=== PATIENT | male | born 1950 | race Caucasian/White ===

== ENCOUNTER 2016-08-29 17:02 | Inpatient (IN) | payer OTHER ==
--- NOTE | ~2016-08-29 | DS ---
Discharge Summary [facility] [address] [place]. [address] NAME: DEON MYERS III : 54 STATUS : DIS IN PAT#: [id number] AGE: 66 ADM/REG DATE : 08/29/16 MR#: [id number] REPORT SERV DATE: 09/09/16 DICTATED BY: CYRUS BETTS JR. DATE: 09/09/16 REPORT STATUS : Draft TRANSCRIBED BY: CAMERON DATE: 09/09/16 Data Collection from hospitalization DISCHARGE DIAGNOSES: 1. Inferior myocardial infarction-acute. 2. Hypertension. 3. Hypercholesterolemia. 4. Coronary artery disease. 5. Grade 1 carotid stenosis. 6. History of renal artery stenosis. CONSULTATIONS: None. PROCEDURES: Cardiac catheterization and percutaneous coronary intervention, 08/29/2016. DISCHARGE MEDICATIONS: Aspirin 81 mg daily, Lipitor 40 mg at bedtime, Lunesta 3 mg at bedtime as needed, Cozaar 25 mg daily, Lopressor 50 mg twice a day, Protonix 40 mg twice a day, Effient 10 mg daily, Zoloft 50 mg daily, Viagra 100 mg as needed, Cialis 10 mg daily as needed, magnesium tablet one tablet twice a day, Metamucil capsule five capsules twice a day as instructed. CONDITION ON DISCHARGE: Stable. DISPOSITION: The patient was discharged home on a low-sodium, low-cholesterol, cardiac diet with activities as instructed. He would follow up with Dr. Master Sinha, 09/23/2016. HOSPITAL COURSE: This is a 66-year-old man, who has known ischemic heart disease and is status post coronary artery bypass grafting in 2011. He developed the new onset of chest pain two hours prior to arrival. It was retrosternal burning with shortness of breath similar to his prior presentation. EKG revealed inferior ST elevation consistent with STEMI. STEMI protocol was activated. He was admitted to the hospital for further evaluation and treatment. Upon admission, the patient was felt to have had an acute inferior ST-elevation myocardial infarction. He was going to be taken emergently to the [facility] to undergo coronary angiography and possibly percutaneous intervention. Statin therapy would be continued throughout his hospital stay. Blood pressure medication would be adjusted as needed. He was taken to the [facility], where he underwent the above-mentioned procedure. He tolerated this well and there were no complications. The following day, he said he was feeling great. He had no edema. He had no nausea or vomiting. Over the next couple of days, he continued to progress. Discharge planning was performed. On 09/01/2016, he was in a normal sinus rhythm. Discharge instructions were given. Due to his improved and stable condition, he was discharged home with the above-stated instructions. Information collected by: Bekah Hobbs I submit the above information as my discharge summary. Discharge Summary [address] [address] NAME: DEON MYERS III : 54 STATUS : DIS IN PAT#: [id number] AGE: 66 ADM/REG DATE : 08/29/16 MR#: [id number] REPORT SERV DATE: 09/09/16 DICTATED BY: CYRUS BETTS JR. DATE: 09/09/16 REPORT STATUS : Draft TRANSCRIBED BY: CAMERON DATE: 09/09/16 TG/CAMERON Cyrus Betts Jr., M.D. / [id number] CC: Efrain Martinez Jr., M.D.
--- NOTE | ~2016-08-29 | HP ---
History And Physical [facility] [id number] [place]. [address] NAME: DEON DAVIDSON III : 54 STATUS : ADM IN [facility]#: [id number] AGE: 66 ADM/REG DATE : 08/29/16 MR#: [id number] REPORT SERV DATE: 08/29/16 DICTATED BY: CYRUS BETTS JR. DATE: 08/29/16 REPORT STATUS : Draft TRANSCRIBED BY: CAMERON DATE: 08/29/16 DATE OF ADMISSION: 08/29/2016 CHIEF COMPLAINT: Chest pain. HISTORY OF PRESENT ILLNESS: Deon Davidson is a 66-year-old male with known ischemic heart disease, status post CABG in 2011. He developed new onset chest pain two hours prior to arrival, it is the retrosternal burning with shortness of breath similar to his prior presentation. EKG revealed inferior ST elevation consistent with STEMI, and a STEMI protocol was activated. PAST MEDICAL HISTORY: Includes coronary artery disease, status post CABG in 11/2011 with a SB to OM, a WALTON to diagonal, and SVG to the LAD. The RCA was un-bypassed. He had a left subclavian stent prior to CABG. The patient has grade 1 carotid stenosis. He has renal artery stenosis. He has history of hypertension and mixed hyperlipidemia. He had a prior ejection fraction of 62%.. ALLERGIES: DENIED. CURRENT MEDICATIONS: Please see the home medication sheet. SOCIAL HISTORY: He does not smoke, drink, or use recreational drugs. FAMILY HISTORY: Significant for midlife vascular disease. REVIEW OF SYSTEMS: He denies recent fever or chills, sudden weight gain or weight loss, or bleeding diathesis. Remainder as HPI or negative. PHYSICAL EXAMINATION: VITAL SIGNS: Blood pressure 122/68, heart rate was 80, respirations 16. GENERAL: Well developed, well nourished, in no acute distress. HEENT: Anicteric, no scleral injection, no oral lesions. NECK: No JVD, supple, no bruits. LUNGS: Clear to auscultation. No hyperexpansion. CARDIOVASCULAR: Regular rate and rhythm with no murmur, rub or gallop. ABDOMEN: Soft, nontender. Normoactive bowel sounds, no hepatosplenomegaly. EXTREMITIES: No clubbing, cyanosis or edema. SKIN: No visible rashes. NEURO/PSY: Normal affect, alert and oriented x 3. EKG: EKG reveals inferior ST-elevation consistent with STEMI. MEDICAL DECISION MAKIN. Acute inferior ST-elevation myocardial infarction. The patient will be taken emergently to cardiac catheterization laboratory for coronary angiography and possible History And Physical [address] [address] NAME: DEON DAVIDSON III : 54 STATUS : ADM IN PAT#: [id number] AGE: 66 ADM/REG DATE : 08/29/16 MR#: [id number] REPORT SERV DATE: 08/29/16 DICTATED BY: CYRUS BETTS JR. DATE: 08/29/16 REPORT STATUS : Draft TRANSCRIBED BY: CAMERON DATE: 08/29/16 percutaneous intervention. The risks were verbally explained and verbally accepted. 2. Mixed hyperlipidemia. We will continue intensive statin therapy throughout this hospital stay. 3. Hypertension. We will adjust medicines as needed. VSM/MODL Cyrus Betts Jr., M.D. / [id number] CC: Efrain Martinez Jr., M.D., Ph.D, F.A.C.C.
[~2016-08-29 17:02] MED LIST: ASA5GR PO; ASAB PO; CIALIS10 MG PO; COZ25 PO; LIPITOR20 PO; LIPITOR40 PO; LOP25 PO; LOP50 PO; LUNESTA3 MG PO; MAGNESIUM TABLET PO; METAMUCIL CAPSULE PO; PRIN5 PO; PROTONIX PO; TICAGRELOR; VIAGRA100 MG PO; VICODINTAB PO; ZOL50 PO; [UNRECOGNIZED DRUG - OTHER]
[2016-08-29 17:11] LABS: BASOPHILS 0.6 %; BASOPHILS ABSOLUTE 0.05 10/3/uL (0.0-0.16); EOSINOPHILS 1.3 %; HEMATOCRIT 43.7 % (40.0-51.0); HEMOGLOBIN 15.4 g/dL (13.6-17.8); IMMATURE GRANULOCYTES 0.1 %; IMMATURE GRANULOCYTES ABSOLUTE 0.01 10/3/uL (0.0-0.11); LYMPHOCYTES 31.3 %; MEAN CORPUS HGB CONC 35.2 g/dL (32.0-36.0); MEAN CORPUSCULAR HEMOGLOB 30.9 pg (26.0-34.0); MEAN CORPUSCULAR VOLUME 87.8 fL (80-100); MEAN PLATELET VOLUME 9.8 fL (9.2-13.0); MONOCYTES 4.5 %; MONOCYTES ABSOLUTE 0.36 10/3/uL (0.21-1.20); NEUTROPHILS 62.2 %; NEUTROPHILS ABSOLUTE 4.98 10/3/uL (2.02-8.40); PLATELET COUNT 285 10/3/uL (150-400); RBC DISTRIBUTION WIDTH 12.7 % (12.0-16.0); RED CELL COUNT 4.98 10/6/uL (4.7-6.1)
[2016-08-29 17:14] LABS: MANUAL DIFF NO %
[2016-08-29 17:23] LABS: PARTIAL THROMBO TIME 25.5 SEC (22.5-37.2); PROTIME (NOT ORD) 13.5 SEC (12.0-14.5)
[2016-08-29 17:27] LABS: BUN (BLOOD UREA NITROGEN) 19 MG/DL (6-23); CALCIUM, SERUM 8.6 MG/DL (8.5-10.4); CHEST PAIN PROFILE TAT 0 Hrs 22 Mins; CHLORIDE, SERUM 108 MMOL/L (96-112); CREATININE 1.26 MG/DL (0.70-1.30); GFR AFRICAN AMERICAN 69 ML/MIN (>=60); GFR NON AFRICAN AMERICAN 60 ML/MIN (>=60); SODIUM, SERUM 141 MMOL/L (135-148); TROPONIN I <0.02 NG/ML (<0.05)
[2016-08-29 17:29] LABS: CO2 (CARBON DIOXIDE) 22 MMOL/L (24-34); GLUCOSE, SERUM 182 MG/DL (60-99)
[2016-08-29 20:01] LABS: CK-MB 57.6 NG/ML
[2016-08-30 04:18] LABS: BUN (BLOOD UREA NITROGEN) 17 MG/DL (6-23); CALCIUM, SERUM 8.4 MG/DL (8.5-10.4); CHLORIDE, SERUM 109 MMOL/L (96-112); CHOL/HDL RATIO(NOT ORDER) 3.4 (0-5); CHOLESTEROL 101 MG/DL (< 200); CK-MB 83.3 NG/ML; CPK 1509 U/L (0-200); CREATININE 1.01 MG/DL (0.70-1.30); GFR AFRICAN AMERICAN 91 ML/MIN (>=60); GFR NON AFRICAN AMERICAN 78 ML/MIN (>=60); HDL CHOLESTEROL 30 MG/DL (> 39); LDL CHOLESTEROL 49 MG/DL (< 130); NON-HDL CHOLESTEROL 71 MG/DL (< 160); POTASSIUM, SERUM 4.3 MMOL/L (3.5-5.3); SODIUM, SERUM 145 MMOL/L (135-148); TRIGLYCERIDE 112 MG/DL (< 150)
[2016-08-30 04:20] LABS: CKMB INDEX (NOT ORD) 5.5; CO2 (CARBON DIOXIDE) 29 MMOL/L (24-34); GLUCOSE, SERUM 101 MG/DL (60-99)
[2016-08-30 04:40] LABS: BASOPHILS 0.5 %; BASOPHILS ABSOLUTE 0.04 10/3/uL (0.0-0.16); EOSINOPHILS ABSOLUTE 0.09 10/3/uL (0.0-0.53); HEMATOCRIT 41.7 % (40.0-51.0); HEMOGLOBIN 14.3 g/dL (13.6-17.8); IMMATURE GRANULOCYTES 0.2 %; IMMATURE GRANULOCYTES ABSOLUTE 0.02 10/3/uL (0.0-0.11); LYMPHOCYTES 24.7 %; LYMPHOCYTES ABSOLUTE 2.18 10/3/uL (0.67-4.30); MANUAL DIFF NO %; MEAN CORPUS HGB CONC 34.3 g/dL (32.0-36.0); MEAN CORPUSCULAR HEMOGLOB 30.1 pg (26.0-34.0); MEAN CORPUSCULAR VOLUME 87.8 fL (80-100); MEAN PLATELET VOLUME 9.9 fL (9.2-13.0); MONOCYTES 6.7 %; MONOCYTES ABSOLUTE 0.59 10/3/uL (0.21-1.20); NEUTROPHILS 66.9 %; NEUTROPHILS ABSOLUTE 5.91 10/3/uL (2.02-8.40); PLATELET COUNT 265 10/3/uL (150-400); RBC DISTRIBUTION WIDTH 12.9 % (12.0-16.0); RED CELL COUNT 4.75 10/6/uL (4.7-6.1); WHITE BLOOD CELLS 8.8 10/3/uL (4.5-10.5)
[2016-08-30 11:39] LABS: CK-MB 53.5 NG/ML
[2016-08-30 11:40] LABS: CKMB INDEX (NOT ORD) 4.9
[2016-08-31 04:36] LABS: CREATININE 1.01 MG/DL (0.70-1.30)
[2016-09-01] MEDS ORDERED: EFFIENT10 PO (11:26)
== END 2016-09-01 12:13 | disposition home or self-care (01) | DRG 247 ==
LOC: CORLMH 17:02 → SSU2 17:07 → CCU 17:42 → 5NO 08-30 15:11
PROVIDERS: Hospitalist; Internal Medicine Cardiovascular Disease
PROC: 4A023N7 Measurement of Cardiac Sampling and Pressure, Left Heart, Percutaneous Approach (ICD-10-PCS; principal; 2016-08-29)
PROC: 027035Z Dilation of Coronary Artery, One Artery with Two Drug-eluting Intraluminal Devices, Percutaneous Approach (ICD-10-PCS; 2016-08-29)
PROC: B2111ZZ Fluoroscopy of Multiple Coronary Arteries using Low Osmolar Contrast (ICD-10-PCS; 2016-08-29)
PROC: B2151ZZ Fluoroscopy of Left Heart using Low Osmolar Contrast (ICD-10-PCS; 2016-08-29)
PROC: B2131ZZ Fluoroscopy of Multiple Coronary Artery Bypass Grafts using Low Osmolar Contrast (ICD-10-PCS; 2016-08-29)
PROC: B2181ZZ Fluoroscopy of Left Internal Mammary Bypass Graft using Low Osmolar Contrast (ICD-10-PCS; 2016-08-29)
DX: I21.19 ST elevation (STEMI) myocardial infarction involving other coronary artery of inferior wall (principal); I25.810 Atherosclerosis of coronary artery bypass graft(s) without angina pectoris; I10 Essential (primary) hypertension; E78.2 Mixed hyperlipidemia
CPT/HCPCS: 71010; 80048; 80061; 82550; 82553; 82565; 83735; 84484; 85025; 85610; 85730; 87641; 93005; 93459; 99152; 99153; 99285; A9270-GY; C1713; C1725; C1769; C1874; C1887; C1894; C9606; J0583; J2250; J3010; Q9967